=== PATIENT | female | born 1980 | race Two or more races ===

== ENCOUNTER 2018-05-31 19:39 | Emergency (ER) | payer OTHER ==
[~2018-05-31] VITALS: Ht 160 cm; Wt 92.1 kg
--- NOTE | 2018-05-31 19:42 | ED.ADGEN ---
Past History Past Medical History: Ovarian Cyst Past Surgical History: Hysterectomy Adult General Chief Complaint Chief Complaint "...Jeferson having a discharge and some low abdomen pain...and maybe a UTI...." [facility] HPI Patient is a 37 year old female who presents with above hx . Lower abdomen pain. Patient states she did eat this afternoon and the pain has been somewhat off and on for several days. Patient denies any trauma. Recent travel from [place] to be within her daughter. Patient does give a history of prior ovarian cysts. 6 life time sexual partners. No history of STDs. Has had history of vaginosis. No history immunosuppression. No history of trauma. Patient has had previous partial hysterectomy due to dysfunctional uterine bleeding. Review of Systems Review of Systems Constitutional: Denies fever or chills [] Eyes: Denies change in visual acuity, redness, or eye pain [] HENT: Denies nasal congestion or sore throat [] Respiratory: Denies cough or shortness of breath [] Cardiovascular: No additional information not addressed in HPI [] GI: Complaints of lower abdominal pain, and vaginal discharge. Nausea, vomiting , bloody stools or diarrhea [] : Some complaints of dysuria or hematuria [] Musculoskeletal: Denies back pain or joint pain [] Integument: Denies rash or skin lesions [] Neurologic: Denies headache, focal weakness or sensory changes [] Endocrine: Denies polyuria or polydipsia [] All other systems were reviewed and found to be within normal limits, except as documented in this note. Family History Family History Noncontributory Current Medications Current Medications Current Medications Medications (Trade) Dose Ordered Sig/Ilsa Start Time Stop Time Status Last Admin Dose Admin Azithromycin (Zithromax) 1,000 mg 1X ONCE 06/01/18 00:30 06/01/18 00:31 DC 06/01/18 00:17 1,000 MG Ceftriaxone Sodium 1 gm/ Sodium Chloride 50 ml @ 100 mls/hr 1X ONCE 06/01/18 00:30 06/01/18 00:59 DC 06/01/18 00:17 100 MLS/HR Ceftriaxone Sodium (Rocephin) 1 gm STK-MED ONCE 06/01/18 00:14 06/01/18 00:15 DC Ketorolac Tromethamine (Toradol 30mg Vial) 30 mg 1X ONCE 06/01/18 02:00 06/01/18 02:01 DC 06/01/18 01:52 30 MG Lactated Ringer's 1,000 ml @ 1,000 mls/hr Q1H 05/31/18 19:43 05/31/18 20:42 DC 05/31/18 20:13 1,000 MLS/HR Metronidazole 100 ml @ 100 mls/hr 1X ONCE 06/01/18 00:30 06/01/18 01:29 DC 06/01/18 00:17 100 MLS/HR Morphine Sulfate (Morphine 10mg Syringe) 10 mg 1X ONCE 06/01/18 02:30 06/01/18 02:31 DC 06/01/18 01:53 10 MG Ondansetron HCl (Zofran) 4 mg 1X ONCE 06/01/18 00:00 06/01/18 00:01 DC 05/31/18 23:56 4 MG Sodium Chloride 50 ml @ As Directed STK-MED ONCE 06/01/18 00:14 06/01/18 00:15 DC Allergies Allergies Allergies Coded Allergies Type Severity Reaction Last Updated Verified Penicillins Allergy Intermediate rash 05/31/18 Yes levofloxacin Allergy Intermediate swelling 05/31/18 Yes Uncoded Allergies Type Severity Reaction Last Updated Verified WASP Allergy Severe 05/31/18 Physical Exam Physical Exam Constitutional: Mild to moderately acute distress, non-toxic appearance. [] HENT: Normocephalic, atraumatic, bilateral external ears normal, oropharynx moist, no oral exudates, nose normal. [] Eyes: PERRLA, EOMI, conjunctiva normal, no discharge. [] Neck: Normal range of motion, no tenderness, supple, no stridor. [] Cardiovascular:Heart rate regular rhythm, no murmur [] Lungs & Thorax: Bilateral breath sounds equal apex auscultation [] Abdomen: Bowel sounds normal, soft, lower pelvic tenderness, some localization to the right. No masses, no pulsatile masses. Obese. Old surgical scar. Vaginal exam did have some mild discharge. Cervical motion tenderness. Appeared to have a right ovarian mass. Skin: Warm, dry, no erythema, no rash. [] Back: No tenderness, no CVA tenderness. [] Extremities: No tenderness, no cyanosis, no clubbing, ROM intact, no edema. [] No true psoas sign. Neurologic: Alert and oriented X 3, normal motor function, normal sensory function, no focal deficits noted. [] Psychologic: Affect anxious, judgement normal, mood normal. [] Current Patient Data Vital Signs Vital Signs Date Time Temp Pulse Resp B/P (MAP) Pulse Ox O2 Delivery O2 Flow Rate FiO2 06/01/18 01:53 18 98 Room Air 05/31/18 20:00 98.2 72 Lab Results Laboratory Tests Test 05/31/18 19:45 05/31/18 19:59 05/31/18 20:05 Urine Collection Type Unknown Urine Color Yellow Urine Clarity Hazy Urine pH 7.0 Urine Specific [place] >=1.030 Urine Protein Neg (NEG-TRACE) Urine Glucose (UA) Neg mg/dL (NEG) Urine Ketones (Stick) Neg mg/dL (NEG) Urine Blood Small (NEG) Urine Nitrite Neg (NEG) Urine Bilirubin Neg (NEG) Urine Urobilinogen Dipstick 0.2 mg/dL (0.2 mg/dL) Urine Leukocyte Esterase Neg (NEG) Urine RBC 1-2 /HPF (0-2) Urine WBC Occ /HPF (0-4) Urine Squamous Epithelial Cells Mod /LPF Urine Bacteria 0 /HPF (0-FEW) Urine Mucus Slight /LPF Urine Opiates Screen Neg (NEG) Urine Methadone Screen Neg (NEG) Urine Barbiturates Neg (NEG) Urine Phencyclidine Screen Neg (NEG) Urine Amphetamine/Methamphetamine Neg (NEG) Urine Benzodiazepines Screen Neg (NEG) Urine Cocaine Screen Neg (NEG) Urine Cannabinoids Screen Neg (NEG) Urine Ethyl Alcohol Neg (NEG) POC Urine HCG, Qualitative hcg negative (Negative) White Blood Count 7.3 x10^3/uL (4.0-11.0) Red Blood Count 4.47 x10^6/uL (3.50-5.40) Hemoglobin 13.3 g/dL (12.0-15.5) Hematocrit 39.2 % (36.0-47.0) Mean Corpuscular Volume 88 fL (79-100) Mean Corpuscular Hemoglobin 30 pg (25-35) Mean Corpuscular Hemoglobin Concent 34 g/dL (31-37) Red Cell Distribution Width 12.9 % (11.5-14.5) Platelet Count 297 x10^3/uL (140-400) Neutrophils (%) (Auto) 58 % (31-73) Lymphocytes (%) (Auto) 29 % (24-48) Monocytes (%) (Auto) 8 % (0-9) Eosinophils (%) (Auto) 5 % (0-3) H Basophils (%) (Auto) 1 % (0-3) Neutrophils # (Auto) 4.2 x10^3uL (1.8-7.7) Lymphocytes # (Auto) 2.1 x10^3/uL (1.0-4.8) Monocytes # (Auto) 0.6 x10^3/uL (0.0-1.1) Eosinophils # (Auto) 0.3 x10^3/uL (0.0-0.7) Basophils # (Auto) 0.1 x10^3/uL (0.0-0.2) Prothrombin Time 9.8 SEC (9.4-11.4) Prothrombin Time INR 1.0 (0.9-1.1) PTT 24 SEC (23-33) Sodium Level 138 mmol/L (136-145) Potassium Level 3.8 mmol/L (3.5-5.1) Chloride Level 103 mmol/L (98-107) Carbon Dioxide Level 28 mmol/L (21-32) Anion Gap 7 (6-14) Blood Urea Nitrogen 13 mg/dL (7-20) Creatinine 0.8 mg/dL (0.6-1.0) Estimated GFR (Cockcroft-Gault) 80.3 Glucose Level 94 mg/dL (70-99) Calcium Level 9.0 mg/dL (8.5-10.1) Total Bilirubin 0.2 mg/dL (0.2-1.0) Direct Bilirubin 0.1 mg/dL (0.0-0.2) Aspartate Amino Transferase (AST) 9 U/L (15-37) L Alanine Aminotransferase (ALT) 21 U/L (14-59) Alkaline Phosphatase 87 U/L (46-116) Troponin I Quantitative < 0.017 ng/mL (0-0.055) Total Protein 7.5 g/dL (6.4-8.2) Albumin 3.5 g/dL (3.4-5.0) Amylase Level 31 U/L (25-115) Lipase 99 U/L (73-393) Microbiology 05/31/18 Wet Prep - Final, Complete Laboratory Tests Test 05/31/18 19:45 05/31/18 19:59 05/31/18 20:05 Urine Collection Type Unknown Urine Color Yellow Urine Clarity Hazy Urine pH 7.0 Urine Specific [place] >=1.030 Urine Protein Neg (NEG-TRACE) Urine Glucose (UA) Neg mg/dL (NEG) Urine Ketones (Stick) Neg mg/dL (NEG) Urine Blood Small (NEG) Urine Nitrite Neg (NEG) Urine Bilirubin Neg (NEG) Urine Urobilinogen Dipstick 0.2 mg/dL (0.2 mg/dL) Urine Leukocyte Esterase Neg (NEG) Urine RBC 1-2 /HPF (0-2) Urine WBC Occ /HPF (0-4) Urine Squamous Epithelial Cells Mod /LPF Urine Bacteria 0 /HPF (0-FEW) Urine Mucus Slight /LPF Urine Opiates Screen Neg (NEG) Urine Methadone Screen Neg (NEG) Urine Barbiturates Neg (NEG) Urine Phencyclidine Screen Neg (NEG) Urine Amphetamine/Methamphetamine Neg (NEG) Urine Benzodiazepines Screen Neg (NEG) Urine Cocaine Screen Neg (NEG) Urine Cannabinoids Screen Neg (NEG) Urine Ethyl Alcohol Neg (NEG) POC Urine HCG, Qualitative hcg negative (Negative) White Blood Count 7.3 x10^3/uL (4.0-11.0) Red Blood Count 4.47 x10^6/uL (3.50-5.40) Hemoglobin 13.3 g/dL (12.0-15.5) Hematocrit 39.2 % (36.0-47.0) Mean Corpuscular Volume 88 fL (79-100) Mean Corpuscular Hemoglobin 30 pg (25-35) Mean Corpuscular Hemoglobin Concent 34 g/dL (31-37) Red Cell Distribution Width 12.9 % (11.5-14.5) Platelet Count 297 x10^3/uL (140-400) Neutrophils (%) (Auto) 58 % (31-73) Lymphocytes (%) (Auto) 29 % (24-48) Monocytes (%) (Auto) 8 % (0-9) Eosinophils (%) (Auto) 5 % (0-3) H Basophils (%) (Auto) 1 % (0-3) Neutrophils # (Auto) 4.2 x10^3uL (1.8-7.7) Lymphocytes # (Auto) 2.1 x10^3/uL (1.0-4.8) Monocytes # (Auto) 0.6 x10^3/uL (0.0-1.1) Eosinophils # (Auto) 0.3 x10^3/uL (0.0-0.7) Basophils # (Auto) 0.1 x10^3/uL (0.0-0.2) Prothrombin Time 9.8 SEC (9.4-11.4) Prothrombin Time INR 1.0 (0.9-1.1) PTT 24 SEC (23-33) Sodium Level 138 mmol/L (136-145) Potassium Level 3.8 mmol/L (3.5-5.1) Chloride Level 103 mmol/L (98-107) Carbon Dioxide Level 28 mmol/L (21-32) Anion Gap 7 (6-14) Blood Urea Nitrogen 13 mg/dL (7-20) Creatinine 0.8 mg/dL (0.6-1.0) Estimated GFR (Cockcroft-Gault) 80.3 Glucose Level 94 mg/dL (70-99) Calcium Level 9.0 mg/dL (8.5-10.1) Total Bilirubin 0.2 mg/dL (0.2-1.0) Direct Bilirubin 0.1 mg/dL (0.0-0.2) Aspartate Amino Transferase (AST) 9 U/L (15-37) L Alanine Aminotransferase (ALT) 21 U/L (14-59) Alkaline Phosphatase 87 U/L (46-116) Troponin I Quantitative < 0.017 ng/mL (0-0.055) Total Protein 7.5 g/dL (6.4-8.2) Albumin 3.5 g/dL (3.4-5.0) Amylase Level 31 U/L (25-115) Lipase 99 U/L (73-393) Microbiology 05/31/18 Wet Prep - Final, Complete EKG EKG [] Radiology/Procedures Radiology/Procedures My interpretation of an film shows no acute cardiopulmonary findings. No free air in the diaphragm. Nonspecific bowel gas pattern. CT of abdomen shows inflammatory of right adnexal mass 3.7 x 2.4 cm. Possible hemorrhagic cyst versus abscess versus ovarian mass.[] Course & Med Decision Making Course & Med Decision Making Pertinent Labs and Imaging studies reviewed. (See chart for details). Patient elects to be treated outpatient with antibiotics and will follow up with [employer] reference ovarian mass. Patient encouraged follow-up labs. Patient return if any concerns. Recommended clear fluid diet for the next couple days. Tylenol and ibuprofen for pain. Patient advised must follow-up closely. Safe sex. Recommend US out pt. ( Currently not available at [facility] [place]) [] Final Impression Final Impression 1. Abdomen Pain 2. Cervicitis 3. Dysuria 4. Rt. Ovarian Mass, Hemorrhagic Cyst vs Abscess[] Dragon Disclaimer Dragon Disclaimer This electronic medical record was generated, in whole or in part, using a voice recognition dictation system. Dragon Disclaimer This chart was dictated in whole or in part using Voice Recognition software in a busy, high-work load, and often noisy Emergency Department environment. It may contain unintended and wholly unrecognized errors or omissions. Discharge Summary Visit Information Final Diagnosis Problems Medical Problems: (1) Abdominal mass Status: Acute (2) Abdominal pain Status: Acute Brief Hospital Course Allergies Allergies Coded Allergies Type Severity Reaction Last Updated Verified Penicillins Allergy Intermediate rash 05/31/18 Yes levofloxacin Allergy Intermediate swelling 05/31/18 Yes Uncoded Allergies Type Severity Reaction Last Updated Verified WASP Allergy Severe 05/31/18 Vital Signs Vital Signs Date Time Temp Pulse Resp B/P (MAP) Pulse Ox O2 Delivery O2 Flow Rate FiO2 06/01/18 01:53 18 98 Room Air 05/31/18 20:00 98.2 72 Lab Results Laboratory Tests Test 05/31/18 19:45 05/31/18 19:59 05/31/18 20:05 Urine Collection Type Unknown Urine Color Yellow Urine Clarity Hazy Urine pH 7.0 Urine Specific [place] >=1.030 Urine Protein Neg (NEG-TRACE) Urine Glucose (UA) Neg mg/dL (NEG) Urine Ketones (Stick) Neg mg/dL (NEG) Urine Blood Small (NEG) Urine Nitrite Neg (NEG) Urine Bilirubin Neg (NEG) Urine Urobilinogen Dipstick 0.2 mg/dL (0.2 mg/dL) Urine Leukocyte Esterase Neg (NEG) Urine RBC 1-2 /HPF (0-2) Urine WBC Occ /HPF (0-4) Urine Squamous Epithelial Cells Mod /LPF Urine Bacteria 0 /HPF (0-FEW) Urine Mucus Slight /LPF Urine Opiates Screen Neg (NEG) Urine Methadone Screen Neg (NEG) Urine Barbiturates Neg (NEG) Urine Phencyclidine Screen Neg (NEG) Urine Amphetamine/Methamphetamine Neg (NEG) Urine Benzodiazepines Screen Neg (NEG) Urine Cocaine Screen Neg (NEG) Urine Cannabinoids Screen Neg (NEG) Urine Ethyl Alcohol Neg (NEG) Bedside Urine HCG, Qualitative hcg negative (Negative) White Blood Count 7.3 x10^3/uL (4.0-11.0) Red Blood Count 4.47 x10^6/uL (3.50-5.40) Hemoglobin 13.3 g/dL (12.0-15.5) Hematocrit 39.2 % (36.0-47.0) Mean Corpuscular Volume 88 fL (79-100) Mean Corpuscular Hemoglobin 30 pg (25-35) Mean Corpuscular Hemoglobin Concent 34 g/dL (31-37) Red Cell Distribution Width 12.9 % (11.5-14.5) Platelet Count 297 x10^3/uL (140-400) Neutrophils (%) (Auto) 58 % (31-73) Lymphocytes (%) (Auto) 29 % (24-48) Monocytes (%) (Auto) 8 % (0-9) Eosinophils (%) (Auto) 5 % (0-3) Basophils (%) (Auto) 1 % (0-3) Neutrophils # (Auto) 4.2 x10^3uL (1.8-7.7) Lymphocytes # (Auto) 2.1 x10^3/uL (1.0-4.8) Monocytes # (Auto) 0.6 x10^3/uL (0.0-1.1) Eosinophils # (Auto) 0.3 x10^3/uL (0.0-0.7) Basophils # (Auto) 0.1 x10^3/uL (0.0-0.2) Prothrombin Time 9.8 SEC (9.4-11.4) Prothromb Time International Ratio 1.0 (0.9-1.1) Activated Partial Thromboplast Time 24 SEC (23-33) Sodium Level 138 mmol/L (136-145) Potassium Level 3.8 mmol/L (3.5-5.1) Chloride Level 103 mmol/L (98-107) Carbon Dioxide Level 28 mmol/L (21-32) Anion Gap 7 (6-14) Blood Urea Nitrogen 13 mg/dL (7-20) Creatinine 0.8 mg/dL (0.6-1.0) Estimated GFR (Cockcroft-Gault) 80.3 Glucose Level 94 mg/dL (70-99) Calcium Level 9.0 mg/dL (8.5-10.1) Total Bilirubin 0.2 mg/dL (0.2-1.0) Direct Bilirubin 0.1 mg/dL (0.0-0.2) Aspartate Amino Transf (AST/SGOT) 9 U/L (15-37) Alanine Aminotransferase (ALT/SGPT) 21 U/L (14-59) Alkaline Phosphatase 87 U/L (46-116) Troponin I Quantitative < 0.017 ng/mL (0-0.055) Total Protein 7.5 g/dL (6.4-8.2) Albumin 3.5 g/dL (3.4-5.0) Amylase Level 31 U/L (25-115) Lipase 99 U/L (73-393) Brief Hospital Course Ms. Carrizales is a 37 old female who presented with abdomen pain. Ovarian mass on CT, elects follow up out pt. Ref. to [facility] group therapy counselor list Discharge Information Condition at Discharge: Improved, Stable Disposition/Orders: D/C to Home Dischare Medications Current Medications Lactated Ringer's 1,000 ml @ 1,000 mls/hr Q1H IV Last administered on at 20:13; Admin Dose 1,000 MLS/HR; Start 05/31/18 at 19:43; Stop 05/31/18 at 20:42; Status DC Ondansetron HCl (Zofran) 4 mg STK-MED ONCE .ROUTE ; Start 05/31/18 at 22:42; Stop 05/31/18 at 22:43; Status DC Ondansetron HCl (Zofran) 4 mg 1X ONCE IV Last administered on 05/31/18at 23:54 ; Admin Dose 4 MG; Start 06/01/18 at 00:00; Stop 06/01/18 at 00:01; Status DC Ondansetron HCl (Zofran) 4 mg 1X ONCE IV Last administered on 05/31/18at 23:56 ; Admin Dose 4 MG; Start 06/01/18 at 00:00; Stop 06/01/18 at 00:01; Status DC Metronidazole 100 ml @ 100 mls/hr 1X ONCE IV Last administered on 06/01/18at 00:17; Admin Dose 100 MLS/HR; Start 06/01/18 at 00:30; Stop 06/01/18 at 01:29; Status DC Azithromycin (Zithromax) 1,000 mg 1X ONCE PO Last administered on 06/01/18at 00 :17; Admin Dose 1,000 MG; Start 06/01/18 at 00:30; Stop 06/01/18 at 00:31; Status DC Ceftriaxone Sodium 1 gm/ Sodium Chloride 50 ml @ 100 mls/hr 1X ONCE IV Last administered on 06/01/18at 00:17; Admin Dose 100 MLS/HR; Start 06/01/18 at 00:30 ; Stop 06/01/18 at 00:59; Status DC Sodium Chloride 50 ml @ As Directed STK-MED ONCE .ROUTE ; Start 06/01/18 at 00: 14; Stop 06/01/18 at 00:15; Status DC Ceftriaxone Sodium (Rocephin) 1 gm STK-MED ONCE .ROUTE ; Start 06/01/18 at 00:14 ; Stop 06/01/18 at 00:15; Status DC Morphine Sulfate (Morphine 10mg Syringe) 10 mg 1X ONCE SQ Last administered on 06/01/18at 01:53; Admin Dose 10 MG; Start 06/01/18 at 02:30; Stop 06/01/18 at 02:31; Status DC Ketorolac Tromethamine (Toradol 30mg Vial) 30 mg STK-MED ONCE .ROUTE ; Start at 01:48; Stop 06/01/18 at 01:49; Status DC Ketorolac Tromethamine (Toradol 30mg Vial) 30 mg 1X ONCE IV Last administered on 06/01/18at 01:52; Admin Dose 30 MG; Start 06/01/18 at 02:00; Stop 06/01/18 at 02:01; Status DC Active Scripts Active Keflex (Cephalexin) 500 Mg Capsule 500 Mg PO TID 10 Days SHADI CONDE MD May 31, 2018 19:42
[2018-05-31] MEDS ORDERED: IV RINGERS SOLUTION,LACTATED 1,000 ML IV SCH (19:43)
[2018-05-31 20:40] LABS: BARBITURATES NEG (NEG); BENZODIAZEPINES NEG (NEG); CANNABINOIDS NEG (NEG); COCAINE NEG (NEG); METHADONE NEG (NEG); OPIATES NEG (NEG); PHENCYCLIDINE NEG (NEG)
[2018-05-31 20:45] LABS: AMPHETAMINE/METHAMPHETAMINE NEG (NEG)
[2018-05-31 20:53] LABS: BASO # 0.1 x10^3/uL (0.0-0.2); BASO % 1 % (0-3); EOS # 0.3 x10^3/uL (0.0-0.7); EOS % 5 % (0-3); HEMATOCRIT 39.2 % (36.0-47.0); HEMOGLOBIN 13.3 g/dL (12.0-15.5); LYMPH # 2.1 x10^3/uL (1.0-4.8); LYMPH % 29 % (24-48); MEAN CORPUSCULAR HEMOGLOBIN 30 pg (25-35); MEAN CORPUSCULAR HGB CONC 34 g/dL (31-37); MEAN CORPUSCULAR VOLUME 88 fL (79-100); MONO # 0.6 x10^3/uL (0.0-1.1); MONO % 8 % (0-9); NEUT # 4.2 x10^3uL (1.8-7.7); NEUT % 58 % (31-73); PLATELET COUNT 297 x10^3/uL (140-400); RED BLOOD COUNT 4.47 x10^6/uL (3.50-5.40); RED CELL DISTRIBUTION WIDTH 12.9 % (11.5-14.5); WHITE BLOOD COUNT 7.3 x10^3/uL (4.0-11.0)
[2018-05-31 20:57] LABS: ALBUMIN 3.5 g/dL (3.4-5.0); CREATININE 0.8 mg/dL (0.6-1.0); DIRECT BILIRUBIN 0.1 mg/dL (0.0-0.2); GFR 80.3; POTASSIUM 3.8 mmol/L (3.5-5.1); TOTAL BILIRUBIN 0.2 mg/dL (0.2-1.0); TOTAL PROTEIN 7.5 g/dL (6.4-8.2)
[2018-05-31 21:13] LABS: BACTERIA,URINE 0 /HPF (0-FEW); BILIRUBIN,URINE NEG (NEG); CLARITY,URINE HAZY; COLOR,URINE YELLOW; GLUCOSE,URINE NEG (NEG); NITRITE,URINE NEG (NEG); SQUAMOUS EPITHELIAL CELL,UR MOD /LPF; UROBILINOGEN,URINE 0.2 mg/dL (0.2 mg/dL); WBC,URINE OCC /HPF (0-4)
--- NOTE | 2018-05-31 22:08 | RAD ---
Acute Abdominal Series: 05/31/2018 8:20 PM Reason for study: LEFT SIDED ABDOMINAL PAIN. Comparison studies: None available. Technique: Frontal view of the chest was obtained along with supine and upright views of the abdomen. Findings: Nonobstructive bowel gas pattern. No air fluid levels or free air. No suspicious calcifications projecting over the renal shadows. The lungs are clear without acute consolidative opacity. No pleural effusion or pneumothorax. The cardiac and mediastinal contours are normal. Visualized osseous structures are intact. IMPRESSION: 1. Nonobstructed bowel gas pattern. 2. No acute cardiopulmonary findings. Electronically signed by: Mariann Vanessa MD (05/31/2018 10:05 PM) [facility]
[2018-05-31] MEDS ORDERED: ONDANSETRON PF 4 MG/2 ML VIAL. ONE (22:42)
--- NOTE | 2018-05-31 23:16 | RAD ---
PQRS Compliance Statement: One or more of the following individualized dose reduction techniques were utilized for this examination: 1. Automated exposure control 2. Adjustment of the mA and/or kV according to patient size 3. Use of iterative reconstruction technique CT abdomen/pelvis without contrast 05/31/2018 10:58 PM INDICATION: Left-sided abdominal and flank pain COMPARISON: None available TECHNIQUE: Multiple axial CT images of the abdomen and pelvis were obtained without intravenous contrast. Coronal and sagittal reformats are provided. FINDINGS: Bilateral breast prosthesis is noted. Visualized portions of the lung bases are clear. Heart size is within normal limits. Evaluation of the solid abdominal viscera is limited by lack of intravenous contrast. No suspicious hepatic masses are identified. Spleen, bilateral adrenal glands, and pancreas are normal in appearance. Gallbladder is present without adjacent inflammatory changes. Gallbladder is contracted limiting evaluation. The abdominal aorta is normal in course and caliber. There are no pathologically enlarged lymph nodes in the abdomen and pelvis. There is no abdominal free fluid. There is no free intraperitoneal air. Small and large bowel are normal in caliber. There is no evidence for bowel obstruction. There are no pericolonic inflammatory changes. A normal, nondilated appendix is visualized without adjacent inflammatory changes. The kidneys are relatively symmetric in appearance. There is no suspicious renal mass within the limitations of a noncontrast examination. There is no hydronephrosis. There are no calculi within the kidneys, ureters or urinary bladder. Inflammatory changes are identified in the right lower pelvis with a cystic area measuring 3.7 x 2.4 cm which may reflect the right ovary. Correlate with surgical history. Uterus appears surgically absent. Mild wall thickening is identified involving the vaginal cuff. No suspicious osseous abnormality is identified. IMPRESSION: 1. Cystic adnexal lesion in the right adnexa measures 3.7 x 2.4 cm with adjacent inflammatory changes. Hemorrhagic cyst, endometrioma or tubo-ovarian abscess are differential considerations. Further evaluation with pelvic ultrasound may be of benefit. There is mild wall thickening involving the vaginal cuff, nonspecific. Correlate with pelvic motion tenderness. 2. No evidence for obstructive uropathy. Electronically signed by: Mariann Vanessa MD (05/31/2018 11:13 PM) [facility]
[2018-06-01] MEDS ORDERED: ONDANSETRON PF 4 MG/2 ML VIAL. IV ONE ×2
[2018-06-01] MEDS ORDERED: CEPH-264 PO (00:08)
[2018-06-01] MEDS ORDERED: cefTRIAXone SODIUM 1 GM VIAL ONE (00:14)
[2018-06-01] MEDS ORDERED: IV NORMAL SALINE 50ML 50 ML ONE (00:14)
[2018-06-01] MEDS ORDERED: AZITHROMYCIN 250 MG TABLET. PO ONE (00:30)
[2018-06-01] MEDS ORDERED: KETOROLAC 30 MG/ML VIAL. ONE (01:48)
[2018-06-01] MEDS ORDERED: KETOROLAC 30 MG/ML VIAL. IV ONE (02:00)
[2018-06-01 02:08] VITALS: BP 121/66
[2018-06-01] MEDS ORDERED: MORPHINE SULFATE 10 MG/ML SYRINGE. SQ ONE (02:30)
[2018-06-02 12:14] LABS: CHLAMYDIA PROBE Negative (Negative)
== END 2018-06-01 02:15 | disposition home or self-care (01) ==
LOC: ER 19:39
DX: N72 Inflammatory disease of cervix uteri (principal); R19.03 Right lower quadrant abdominal swelling, mass and lump; R11.2 Nausea with vomiting, unspecified; N83.8 Other noninflammatory disorders of ovary, fallopian tube and broad ligament; R30.0 Dysuria; Z88.0 Allergy status to penicillin; Z88.1 Allergy status to other antibiotic agents; Z90.710 Acquired absence of both cervix and uterus
CPT/HCPCS: 36415; 74022; 74176; 80048; 80076; 80307; 81001; 81025; 82150; 83690; 84484; 85025; 85610; 85730; 86592; 86703; 86705; 86709; 86803; 87340; 87491; 87591; 96361; 96365; 96368; 96372; 96375; 99284; J0456; J0696; J1885; J2270; J2405; J3490; J7120; Q0111